=== PATIENT | female | born 1990 | race Caucasian/White ===

== ENCOUNTER 2019-10-21 14:15 | Emergency (ER) | payer OTHER ==
[~2019-10-21] VITALS: Ht 160 cm; Wt 78.5 kg
[2019-10-21] MEDS ORDERED: NOHOMEMEDICATIONS (14:47)
[2019-10-21 15:06] LABS: ABSOLUTE NEUTROPHILS 5.4 thou/uL (1.4-8.2); BASOPHILS 0.6 % (0.0-2.0); EOSINOPHILS 0.8 % (0.0-3.0); HEMATOCRIT 45.9 % (37.0-47.0); HEMOGLOBIN 15.4 gm/dL (12.0-15.0); LYMPHOCYTES 35.5 % (24.0-44.0); MCH 30.6 pg (26.0-34.0); MCHC 33.6 g/dL (28.0-37.0); MCV 91.1 fL (80.0-100.0); MONOCYTES 5.2 % (1.0-8.0); PLATELET COUNT 299 thou/uL (150-400); POLYS 57.9 % (36.0-66.0); RBC 5.04 mil/uL (4.20-5.00); RDW 12.7 % (10.5-14.5); WBC 9.3 thou/uL (4.0-11.0)
[2019-10-21 15:27] LABS: CALCIUM 9.5 mg/dL (8.5-10.1); CREATININE 0.9 mg/dL (0.6-1.0); POTASSIUM 3.4 mmol/L (3.5-5.1)
[2019-10-21 15:32] LABS: ALBUMIN 5.1 g/dL (3.4-5.0); TOTAL BILIRUBIN 0.5 mg/dL (<0.1-1.0); TOTAL PROTEIN 9.8 g/dL (6.4-8.2)
[2019-10-21 15:35] LABS: URINE BILIRUBIN NEGATIVE (Negative); URINE BLOOD TRACE (Negative); URINE CLARITY CLEAR; URINE COLOR YELLOW; URINE GLUCOSE-RANDOM* NEGATIVE (Negative); URINE KETONES 2+ (Negative); URINE LEUKOCYTES-REFLEX NEGATIVE (Negative); URINE NITRITE-REFLEX NEGATIVE (Negative); URINE PROTEIN (DIPSTICK) NEGATIVE (Negative); URINE SPECIFIC GRAVITY >= 1.030 (1.005-1.035); URINE UROBILINOGEN 0.2 E.U./dl (0.2-1.0)
[2019-10-21] MEDS ORDERED: ZOFRAN ODT4 MG PO (16:43)
[2019-10-21 17:15] VITALS: BP 101/54
== END 2019-10-21 17:16 | disposition home or self-care (01) ==
LOC: ER 14:15
PROVIDERS: Emergency Medicine Emergency Medical Services
DX: R10.13 Epigastric pain (principal); R10.31 Right lower quadrant pain; R10.11 Right upper quadrant pain; R19.7 Diarrhea, unspecified; Z90.49 Acquired absence of other specified parts of digestive tract